=== PATIENT | female | born 1980 | race Caucasian/White ===

== ENCOUNTER 2021-11-30 00:48 | Emergency (ER) | payer MEDICAID ==
[~2021-11-30] VITALS: Ht 165.1 cm; Wt 84.1 kg
[2021-11-30 00:53] VITALS: BP 151/93
== END 2021-11-30 03:07 | disposition home or self-care (01) ==
LOC: ER 00:49
DX: S93.401A Sprain of unspecified ligament of right ankle, initial encounter (principal); S90.121A Contusion of right lesser toe(s) without damage to nail, initial encounter; S80.11XA Contusion of right lower leg, initial encounter; S90.01XA Contusion of right ankle, initial encounter; Z88.5 Allergy status to narcotic agent; Z88.8 Allergy status to other drugs, medicaments and biological substances; Y30.XXXA Falling, jumping or pushed from a high place, undetermined intent, initial encounter; Y93.89 Activity, other specified; Y92.89 Other specified places as the place of occurrence of the external cause; Y99.8 Other external cause status
CPT/HCPCS: 73610; 73630; 99284

== ENCOUNTER 2022-07-06 20:47 | Emergency (ER) | payer MEDICAID ==
[~2022-07-06] VITALS: Ht 165.1 cm; Wt 84.1 kg
[2022-07-06 22:29] VITALS: BP 145/93
== END 2022-07-07 02:51 | disposition left against medical advice (07) ==
LOC: ER 20:47
DX: R51.9 Headache, unspecified (principal); Z53.21 Procedure and treatment not carried out due to patient leaving prior to being seen by health care provider

== ENCOUNTER 2022-07-08 22:12 | Emergency (ER) | payer MEDICAID ==
[~2022-07-08] VITALS: Ht 165.1 cm; Wt 90.0 kg
[2022-07-08 22:27] VITALS: BP 137/68
== END 2022-07-09 03:24 | disposition left against medical advice (07) ==
LOC: ER 22:13
DX: R51.9 Headache, unspecified (principal); Z53.21 Procedure and treatment not carried out due to patient leaving prior to being seen by health care provider

== ENCOUNTER 2022-11-28 21:58 | Emergency (ER) | payer MEDICAID ==
[~2022-11-28] VITALS: Ht 165.1 cm; Wt 88.0 kg
[2022-11-28 23:35] LABS: CLARITY,URINE CLEAR (Clear); COLOR,URINE YELLOW (Yellow); GLUCOSE, URINE NEGATIVE (Neg); KETONES,URINE NEGATIVE (Neg); LEUKOCYTE ESTERASE ,URINE NEGATIVE (Neg); NITRITES, URINE NEGATIVE (Neg); OCCULT BLOOD,URINE NEGATIVE (Neg); PROTEIN,URINE NEGATIVE (Neg); UROBILINOGEN,URINE 0.2 E.U/dL (0.2-1.0)
[2022-11-28 23:36] LABS: BASOPHILS % (AUTO) 0.4 % (0-1); EOSINOPHILS # (AUTO) 0.1 X10'3 (0-0.9); EOSINOPHILS % (AUTO) 1.2 % (0-6); HEMATOCRIT 24.6 % (35.0-45.0); HEMOGLOBIN 8.4 g/dl (12.0-16.0); LYMPHOCYTES # (AUTO) 2.5 X10'3 (1.1-4.8); LYMPHOCYTES % (AUTO) 21.2 % (21-51); MEAN CORPUSCULAR HEMOGLOBIN 31.8 PG (27.0-31.0); MEAN CORPUSCULAR HGB CONC 34.1 g/dL (33.0-36.5); MONOCYTES # (AUTO) 1.1 X10'3 (0-0.9); MONOCYTES % (AUTO) 9.3 % (2-12); NEUTROPHILS # (AUTO) 7.9 X10'3 (1.8-7.7); NEUTROPHILS % (AUTO) 67.9 % (42-75); PLATELET COUNT 216 X10'3 (140-440); RED BLOOD COUNT 2.64 X10'6 (4.20-5.60); WHITE BLOOD COUNT 11.7 X10'3 (4.5-11.0)
[2022-11-28 23:38] LABS: UA COLLECTION TYPE CLN CATCH MIDSTREAM
[2022-11-28 23:43] LABS: ALANINE AMINOTRANSFERASE 26 U/L (12-78); ALBUMIN 2.5 G/DL (3.4-5.0); ALBUMIN/GLOBULIN RATIO 0.7 (1.1-1.5); ALKALINE PHOSPHATASE 95 IU/L (46-116); ANION GAP 7 (8-16); ASPARTATE AMINO TRANSFERASE 39 U/L (10-37); BILIRUBIN,TOTAL 0.4 MG/DL (0.1-1.0); BLOOD UREA NITROGEN 15 MG/DL (7-18); BUN/CREATININE RATIO 23.8 (10.0-20.0); CALCIUM 8.5 MG/DL (8.5-10.1); CHLORIDE 105 MMOL/L (99-107); CREATININE 0.63 MG/DL (0.40-0.90); GLUCOSE 79 MG/DL (70-104); POTASSIUM 3.9 MMOL/L (3.5-5.1); SODIUM 139 MMOL/L (135-145); TOTAL CARBON DIOXIDE 27.3 MMOL/L (24-32); TOTAL PROTEIN 6.2 G/DL (6.4-8.2); eGFR > 90 ML/MIN
[2022-11-29 00:40] VITALS: BP 146/87
== END 2022-11-29 00:42 | disposition home or self-care (01) ==
LOC: ER 21:58
DX: S30.1XXA Contusion of abdominal wall, initial encounter (principal); Z98.51 Tubal ligation status; Z98.890 Other specified postprocedural states; Z88.5 Allergy status to narcotic agent; X58.XXXA Exposure to other specified factors, initial encounter; Y93.89 Activity, other specified; Y92.89 Other specified places as the place of occurrence of the external cause; Y99.8 Other external cause status
CPT/HCPCS: 36415; 80053; 81003; 85025; 99284

== ENCOUNTER 2023-03-17 12:31 | Emergency (ER) | payer MEDICAID ==
[~2023-03-17] VITALS: Ht 165.1 cm; Wt 90.0 kg
[2023-03-17 12:51] VITALS: BP 123/68; PULSE 102; RESP 18; TEMP 97.8; O2SAT 98
== END 2023-03-17 16:51 | disposition left against medical advice (07) ==
LOC: ER 12:31
DX: J34.9 Unspecified disorder of nose and nasal sinuses (principal); Z53.21 Procedure and treatment not carried out due to patient leaving prior to being seen by health care provider
CPT/HCPCS: 99281

== ENCOUNTER 2023-07-09 10:35 | Emergency (ER) | payer MEDICAID ==
[~2023-07-09] VITALS: Ht 166.4 cm; Wt 71.9 kg
[2023-07-09] MEDS ORDERED: ALBU8HFA INH (12:15)
[2023-07-09] MEDS ORDERED: PROM118S5 PO (12:16)
[2023-07-09] MEDS ORDERED: [UNRECOGNIZED DRUG - OTHER] (12:16)
[2023-07-09 12:26] VITALS: BP 120/62; PULSE 96; RESP 16; TEMP 97.8; O2SAT 96
== END 2023-07-09 12:31 | disposition home or self-care (01) ==
LOC: ER 10:35
DX: J98.8 Other specified respiratory disorders (principal); Z98.890 Other specified postprocedural states; Z88.8 Allergy status to other drugs, medicaments and biological substances
CPT/HCPCS: 71045; 99283